=== PATIENT | female | born 1975 | race Caucasian/White ===

== ENCOUNTER 2019-12-04 10:04 | Emergency (ER) | payer BC, OTHER ==
--- NOTE | 2019-12-04 10:47 | EDM.PDOC ---
ED HPI GENERAL MEDICAL PROBLEM - General Chief Complaint: Fever Stated Complaint: COVID SYMPTOMS Time Seen by Provider: 12/04/19 10:30 Source of Information: Reports: Patient History Limitations: Reports: No Limitations - History of Present Illness INITIAL COMMENTS - FREE TEXT/NARRATIVE: Patient presents to ER with concerns of possible COVID-19. Started running a fever yesterday, had body aches, chills and a headache. Does note mild sinus congestion and drainage. No sore throat. No nausea/vomiting or abdominal pain. She states fever was at 100.5 yesterday. Rested more through the day. Does feel better today, no fever but worries about the virus and requesting testing. Has not been exposed that she is aware of. Has been working from home. Did travel to [place] one week ago. Onset: Gradual Duration: Day(s): Location: Reports: Generalized Associated Symptoms: Reports: Fever/Chills, Malaise. Denies: Chest Pain, Cough , Loss of Appetite, Nausea/Vomiting, Shortness of Breath, Weakness Treatments CLINICAL ENGINEERING DIRECTOR: Reports: Acetaminophen - Related Data Allergies Allergy/AdvReac Type Severity Reaction Status Date / Time No Known Allergies Allergy Verified 12/04/19 10:45 Home Meds: Home Meds Venlafaxine HCl [Venlafaxine ER] 150 mg PO DAILY 12/04/19 [History] amLODIPine Besylate [Amlodipine Besylate] 5 mg PO DAILY 12/04/19 [History] buPROPion HCL [Bupropion Xl] 150 mg PO DAILY 12/04/19 [History] hydroCHLOROthiazide [Hydrochlorothiazide] 12.5 mg PO DAILY 12/04/19 [History] Past Medical History Cardiovascular History: Reports: Hypertension Psychiatric History: Reports: Depression Social & Family History - Tobacco Use Smoking Status *Q: Unknown Ever Smoked ED ROS GENERAL - Review of Systems Review Of Systems: See Below Constitutional: Reports: Fever, Chills, Malaise, Weakness, Fatigue. Denies: Decreased Appetite HEENT: Reports: Rhinitis. Denies: Ear Pain, Throat Pain, Vertigo Respiratory: Denies: Shortness of Breath, Cough Cardiovascular: Denies: Chest Pain, Edema, Lightheadedness Endocrine: Reports: Fatigue GI/Abdominal: Denies: Abdominal Pain, Nausea, Vomiting : Reports: No Symptoms Musculoskeletal: Reports: No Symptoms Skin: Reports: No Symptoms Neurological: Reports: No Symptoms Psychiatric: Reports: No Symptoms ED EXAM, GENERAL - Physical Exam Exam: See Below Exam Limited By: No Limitations General Appearance: Alert, WD/WN, No Apparent Distress Ears: Normal External Exam, Normal TMs Nose: Normal Inspection, Normal Mucosa, No Blood Throat/Mouth: Normal Inspection, Normal Oropharynx Head: Normocephalic Neck: Normal Inspection, Supple, Non-Tender Respiratory/Chest: No Respiratory Distress, Lungs Clear, Normal Breath Sounds Cardiovascular: Regular Rate, Rhythm GI/Abdominal: Normal Bowel Sounds, Soft, Non-Tender Neurological: Alert, Oriented Skin Exam: Warm, Dry Course - Orders/Labs/Meds Orders: Active Orders 24 hr Category Date Time Status CORONAVIRUS COVID-19 PCR PHL Routine Lab 12/04/19 10:23 Ordered - Re-Assessments/Exams Free Text/Narrative Re-Assessment/Exam: 12/04/19 COVID testing obtained per nurse Departure - Departure Time of Disposition: 10:44 Disposition: Home, Self-Care 01 Condition: Good Clinical Impression: Fever of unknown origin - Discharge Information *PRESCRIPTION DRUG MONITORING PROGRAM REVIEWED*: No *COPY OF PRESCRIPTION DRUG MONITORING REPORT IN PATIENT JESSICA: No Instructions: Fever, Adult, [id number] Referrals: Bri Alvarez MD [Primary Care Provider] - Forms: ED Department Discharge Additional Instructions: 1. Rest 2. Push fluids 3. Tylenol or ibuprofen for fever or discomfort 4. You will be contacted with results of covid testing once available. 5. Stay home, quarantine self until results received. Sepsis Event Note - Focused Exam Date Exam was Performed: 12/04/19 Time Exam was Performed: 10:47 - My Orders Last 24 Hours: My Active Orders 12/04/19 10:23 CORONAVIRUS COVID-19 PCR PHL Routine - Assessment/Plan Last 24 Hours: My Active Orders 12/04/19 10:23 CORONAVIRUS COVID-19 PCR PHL Routine
== END 2019-12-04 11:05 | disposition home or self-care (01) ==
LOC: VM.ED 10:04
DX: R50.9 Fever, unspecified (principal); I10 Essential (primary) hypertension; F32.9 Major depressive disorder, single episode, unspecified; Z79.899 Other long term (current) drug therapy
CPT/HCPCS: 99283; 99283-GF; U0002

== ENCOUNTER 2023-03-23 13:36 | Emergency (ER) | payer BC, OTHER ==
[2023-03-23 14:20] LABS: BASOPHILS PERCENT AUTO 0.3 % (0.2-1.2); EOSINOPHILS ABSOLUTE AUTO 0.1 x10^3/uL (0.0-0.5); EOSINOPHILS PERCENT AUTO 0.8 % (0.0-4.0); HEMATOCRIT 39.4 % (33.0-47.0); IMMATURE GRAN ABSOLUTE AUTO 0.01 x10^3/uL (0.00-0.07); LYMPHOCYTES ABSOLUTE AUTO 1.4 x10^3/uL (1.0-4.8); LYMPHOCYTES PERCENT AUTO 22.9 % (25.0-50.0); MEAN CORPUSCULAR HGB CONC 35.5 g/dL (32.0-36.0); MEAN CORPUSCULAR VOLUME 87.4 fL (78.0-93.0); MONOCYTES ABSOLUTE AUTO 0.4 x10^3/uL (0.0-0.8); MONOCYTES PERCENT AUTO 6.5 % (2.0-11.0); NEUTROPHILS ABSOLUTE AUTO 4.1 x10^3/uL (1.8-7.7); NEUTROPHILS PERCENT AUTO 69.3 % (50.0-80.0); PLATELET COUNT,PLT 259 x10^3/uL (130-400); RED BLOOD CELL COUNT 4.51 x10^6/uL (4.00-5.50)
[2023-03-23 14:41] LABS: A/G RATIO 0.97; ALBUMIN 3.6 g/dL (3.4-5.0); ANION GAP 11.5 mmol/L (5-15); BILIRUBIN TOTAL 0.4 mg/dL (0.2-1.0); C-REACTIVE PROTEIN 0.56 mg/dL (<=0.30); CALCIUM 8.9 mg/dL (8.5-10.1); CREATININE 0.9 mg/dL (0.55-1.02); EST CRCL DRUG DOSING (CG) 70.78 mL/min; POTASSIUM,K 3.5 mmol/L (3.5-5.1); PROTEIN TOTAL,TP 7.3 g/dL (6.4-8.2)
== END 2023-03-23 15:40 | disposition home or self-care (01) ==
LOC: VM.ED 13:36
DX: N93.9 Abnormal uterine and vaginal bleeding, unspecified (principal); I10 Essential (primary) hypertension; E66.9 Obesity, unspecified; Z68.41 Body mass index [BMI] 40.0-44.9, adult; Z79.899 Other long term (current) drug therapy
CPT/HCPCS: 36415; 80053; 85025; 86140; 99284